=== PATIENT | male | born 1990 | race Caucasian/White ===

== ENCOUNTER 2017-07-31 08:11 | Emergency (ER) | payer MEDICAID ==
[~2017-07-31] VITALS: Ht 175.3 cm; Wt 100.0 kg
[2017-07-31 08:30] VITALS: BP 146/88
[2017-07-31] MEDS ORDERED: DEXAMETHASONE 4 MG TABLET PO ONE (09:00)
[2017-07-31] MEDS ORDERED: DIPHENHYDRAMINE 50 MG/ML, 1ML IVPush ONE (09:00)
[2017-07-31] MEDS ORDERED: METOCLOPRAMIDE 5 MG/ML, 2ML IVPush ONE (09:00)
[2017-07-31] MEDS ORDERED: HALOPERIDOL 5 MG/ML IV ONE (09:00)
[2017-07-31] MEDS ORDERED: DEXAMETHASONE 4 MG TABLET ONE (09:13)
== END 2017-07-31 09:45 | disposition home or self-care (01) ==
LOC: ED 09:20
DX: J02.0 Streptococcal pharyngitis (principal)
CPT/HCPCS: 87880; 99283